=== PATIENT | female | born 1955 | race Caucasian/White ===

== ENCOUNTER 2017-03-05 05:48 | Day surgery (SDC) | payer BC ==
[2017-03-04 13:29] LABS: HEMATOCRIT 42.5 % (36.0-48.0); MCH 28.6 pg (26.0-34.0); MCHC 32.9 g/dL (31.0-37.0); MCV 86.9 fL (80.0-100.0); MEAN PLATELET VOLUME 10.1 fL (7.4-10.4); RBC 4.89 10x6/uL (4.00-5.40); RDW 13.2 % (11.5-14.5); WBC 6.5 10x3/uL (4.8-10.8)
[~2017-03-05] VITALS: Ht 182.9 cm; Wt 74.8 kg
[~2017-03-05 05:48] MED LIST: BIOTIN5 MG PO; CRANBERRY 400 M1 TA1 PO; DUEXIS 800-26.1 EACH PO; EFFEXOR XR150 MG PO; FISH OIL 1,0001 CA1 PO
[2017-03-05 07:00] VITALS: BP 126/70; Ht 182.9 cm; Wt 74.8 kg
[2017-03-05] MEDS ORDERED: HYDROCODONE-APA1 TAB PO (09:13)
--- NOTE | 2017-03-05 11:49 | NUR ---
1030 ICV DC WITH CATHER TIP INTACT
== END 2017-03-05 10:40 | disposition home or self-care (01) ==
LOC: D.OPS 05:48 → D.PAN 08:30 → D.OPS 08:30
PROVIDERS: Anesthesiology
DX: M65.311 Trigger thumb, right thumb (principal); G56.01 Carpal tunnel syndrome, right upper limb

== ENCOUNTER → 2017-04-15 14:10 | Outpatient (CLI) | payer BC ==
[2017-03-05 07:00] VITALS: BMI 22.4
[~2017-04-15 14:10] MED LIST changes: +HYDROCODONE-APA1 TAB PO
== END | disposition home or self-care (01) ==
LOC: D.MRI 14:10
DX: S62.91XA Unspecified fracture of right hand, initial encounter for closed fracture (principal)

== ENCOUNTER → 2017-07-21 19:10 | Outpatient (CLI) | payer BC ==
[2017-03-05 07:00] VITALS: BMI 22.4
== END | disposition home or self-care (01) ==
LOC: D.MAMMO 16:00
DX: Z12.31 Encounter for screening mammogram for malignant neoplasm of breast (principal)

== ENCOUNTER 2018-08-13 19:00 | Outpatient (CLI) | payer MEDICAID ==
[2017-03-05 07:00] VITALS: BMI 22.4
== END 2018-08-13 23:59 | disposition home or self-care (01) ==
LOC: D.MAMMO 19:00
DX: Z12.31 Encounter for screening mammogram for malignant neoplasm of breast (principal)